=== PATIENT | male | born 1940 | race Caucasian/White ===

== ENCOUNTER 2022-02-15 07:47 | Day surgery (SDC) | payer MEDICARE, OTHER ==
[2022-02-12 12:40] LABS: BASOPHILS % (AUTO) 0.5 % (0.0-5.0); EOSINOPHILS % (AUTO) 3.6 % (0.0-8.0); HEMATOCRIT 38.5 % (42-54); LYMPHOCYTES % (AUTO) 37.2 % (21.0-51.0); MEAN CORPUSCULAR HEMOGLOBIN 29.8 pg (27.0-33.0); MEAN CORPUSCULAR VOLUME 87.7 fL (79-99); MONOCYTES % (AUTO) 6.4 % (3.0-13.0); NEUTROPHILS % (AUTO) 51.9 % (40.0-77.0); PLATELET COUNT (AUTO) 201 K/uL (130-400); RED BLOOD CELL COUNT(AUTO) 4.39 MIL/uL (4.50-6.20); RED CELL DISTRIBUTION WIDTH 13.3 % (11.0-15.5); WHITE BLOOD COUNT (AUTO) 8.3 K/uL (4.8-10.8)
[2022-02-12 12:50] LABS: POTASSIUM 4.1 mmol/L (3.5-5.1)
[2022-02-14 09:56] VITALS: BP 126/71
[~2022-02-15] VITALS: Ht 170.2 cm; Wt 91.5 kg
[2022-02-15] VITALS (15 sets, daily range): BP systolic 114–146; BP diastolic 64–88
[2022-02-15] MEDS: CEFTRIAXONE 1G VIAL IVP SCH ×2 (05:00→10:10)
[~2022-02-15 07:47] MED LIST: BETA1TAB20 PO; CALC-1105 PO; DOCU-116 PO; METF-444 PO; PREVAGEN PO; TAMS-1 PO
[2022-02-15] MEDS ORDERED: 0.9%NACL 1000ML 1,000 ML IV ONE (07:54)
[2022-02-15] MEDS ORDERED: FAMOTIDINE 20MG VIAL IV ONE (09:49)
[2022-02-15] MEDS ORDERED: ROCURONIUM 10MG/1ML SYR 10 MG/ML ML ONE (09:51)
[2022-02-15] MEDS ORDERED: FENTANYL CITRATE PF 50 MCG/1 ML 2ML VIAL ONE (09:51)
[2022-02-15] MEDS ORDERED: PROPOFOL 10 MG/ML 20ML VIAL IV ONE (09:51)
[2022-02-15] MEDS ORDERED: LIDOCAINE PF 100MG/5ML (2%) SYRINGE 5ML ONE (09:51)
[2022-02-15] MEDS ORDERED: GLYCOPYRROLATE 1 MG/5 ML SYRINGE ONE (09:52)
[2022-02-15] MEDS ORDERED: ONDANSETRON 4MG INJ ONE (10:43)
[2022-02-15] MEDS ORDERED: NEOSTIGMINE 5MG/5ML SYR IV ONE (10:44)
[2022-02-15] MEDS ORDERED: OPIUM/BELLADONNA ALKALOIDS 1 EACH SUPP.RECT RC ONE (11:27)
[2022-02-15] MEDS ORDERED: MORPHINE 2 MG SYG ONE (12:31)
[2022-02-15] MEDS ORDERED: PHENAZOPYRIDINE HCL 200 MG TABLET ONE (14:01)
== END 2022-02-15 14:40 | disposition home or self-care (01) ==
LOC: DAH 07:47
PROVIDERS: ATTEND Urology
DX: N40.1 Benign prostatic hyperplasia with lower urinary tract symptoms (principal); Z20.822 Contact with and (suspected) exposure to COVID-19; R33.8 Other retention of urine; R39.14 Feeling of incomplete bladder emptying; E78.5 Hyperlipidemia, unspecified; E11.9 Type 2 diabetes mellitus without complications; Z79.899 Other long term (current) drug therapy; Z98.890 Other specified postprocedural states; Z90.49 Acquired absence of other specified parts of digestive tract; Z98.42 Cataract extraction status, left eye; Z79.84 Long term (current) use of oral hypoglycemic drugs
CPT/HCPCS: 36415; 52648; 80048; 82948; 85025; 87635; 93005 ×2; A4215; A4221; A4222; A4223; A4340; A4354; A4358; A4510; A4600; A4663; A6260; C9803; J0696; J2001; J2405; J2704; J2710; J3010; J3490 ×2; J7030; J7120

== ENCOUNTER 2022-02-18 21:48 | Emergency (ER) | payer MEDICARE ==
[~2022-02-18] VITALS: Ht 172.7 cm; Wt 91.6 kg
[2022-02-18 21:50] VITALS: BP 152/73
== END 2022-02-18 22:43 | disposition home or self-care (01) ==
LOC: EDH 21:48
DX: R33.9 Retention of urine, unspecified (principal); N99.89 Other postprocedural complications and disorders of genitourinary system; E11.9 Type 2 diabetes mellitus without complications; Z79.84 Long term (current) use of oral hypoglycemic drugs; Z79.899 Other long term (current) drug therapy
CPT/HCPCS: 99281